=== PATIENT | female | born 1975 | race Caucasian/White ===

== ENCOUNTER 2018-10-21 15:05 | Inpatient (IN) | payer MEDICAID, OTHER ==
[~2018-10-21] VITALS: Ht 162.6 cm; Wt 108.9 kg
[2018-10-21] MEDS ORDERED: FURO-152 PO (15:10)
[2018-10-21] MEDS ORDERED: ONDANSETRON HCL 4MG/2ML INJ IV STA (15:21)
[2018-10-21] MEDS ORDERED: MORPHINE SULFATE 4 MG/ML CPJ (NOT FOR IM USE) IV STA (15:21)
[2018-10-21] MEDS ORDERED: NITROGLYCERIN OINT 1GM/INCH UDPKT TD ONE (15:30)
[2018-10-21] MEDS ORDERED: FUROSEMIDE 40MG/4ML VIAL IV ONE (15:30)
[2018-10-21] MEDS ORDERED: ASPIRIN 81MG TABLET PO ONE (15:30)
[2018-10-21] MEDS ORDERED: ALBUTEROL (0.083%) 2.5MG/3ML NEB HHN STA (16:42)
[2018-10-21] MEDS ORDERED: IPRATROPIUM BROMIDE (0.02%) 0.5MG/2.5ML NEB HHN STA (16:42)
[2018-10-21 16:45] LABS: HEMATOCRIT. 29.5 % (36.0-48.0); HEMOGLOBIN. 9.3 g/dL (12.0-16.0); MEAN CORPUSCULAR VOLUME 79.5 fL (81.0-99.0); MEAN PLATELET VOLUME 7.3 fl (7.4-10.4); PLATELET 232 x1000/uL (130-400); RED BLOOD CELL COUNT 3.72 mill/uL (4.2-5.4); RED CELL DISTRIBUTION WIDTH 22.4 % (11.6-14.6)
[2018-10-21 16:47] LABS: CHLORIDE 107 mEq/L (98-107)
[2018-10-21 16:50] LABS: INR 1.1; PARTIAL THROMBOPLASTIN TIME 25.7 sec (23.4-31.0)
[2018-10-21] MEDS ORDERED: DOPAMINE 400MG/250ML PREMIX 250 ML IV ONE ×2 (17:00→17:10)
[2018-10-21 17:45] LABS: PLATELET ESTIMATE NORMAL
[2018-10-21] MEDS ORDERED: GUAIFENESIN 200MG/10ML SUGAR FREE UDC PO PRN (17:45)
[2018-10-21] MEDS ORDERED: ONDANSETRON HCL 4MG/2ML INJ IV PRN (17:45)
[2018-10-21] MEDS ORDERED: MAGNESIUM/ALUMINUM HYDROXIDE/SIMETHICONE 30ML UDC PO PRN (17:45)
[2018-10-21] MEDS ORDERED: ACETAMINOPHEN 325MG TABLET PO PRN (17:45)
[2018-10-21] MEDS ORDERED: CLONIDINE 0.1MG TABLET PO PRN (17:45)
[2018-10-21] MEDS ORDERED: IPRATROPIUM/ALBUTEROL 0.5-3(2.5)MG/3ML NEB INH PRN (17:45)
[2018-10-21] MEDS ORDERED: HYDROCODONE/ACETAMINOPHEN 5/325MG TABLET PO PRN (17:45)
[2018-10-21] MEDS ORDERED: DOCUSATE SODIUM 100MG CAPSULE PO PRN (17:45)
[2018-10-21 18:59] LABS: HEPATITIS B SURFACE ANTIGEN NEGATIVE
[2018-10-21 19:24] LABS: BG BILEVEL POS AIRWAY PRESSURE 15/5; BG CARBOXYHEMOGLOBIN 0.2 % (0.5-1.5); BG DEOXYHEMOGLOBIN 0.9 % (0.0-5.0); BG FRACTION INSPIRED OXYGEN 80; BG HCO3 ACT 15.3 mmol/L (22.0-26.0); BG METHEMOGLOBIN 0.4 % (0.0-1.5); BG OXYGEN SATURATION 99.1 % (92.0-98.5); BG OXYHEMOGLOBIN 98.5 % (94.0-97.0); BG PCO2 24.8 mmHg (35.0-45.0); BG PH 7.407 (7.350-7.450); BG PO2 183.8 mmHg (75.0-100.0); BG SAMPLE SITE RIGHT RADIAL; BG TOTAL HEMOGLOBIN 10.2 g/dL (12.0-18.0); BG VENT MODE MASK - BIPAP; BG VENT RATE 18 set
[2018-10-21 19:29] LABS: HEPATITIS A AB IGM NEGATIVE (NEGATIVE)
[2018-10-21] MEDS ORDERED: CEFTRIAXONE 1 G PREMIX 50 ML IV NR (23:30)
[2018-10-22 03:59] LABS: CLARITY URINE CLEAR (CLEAR); COLOR URINE YELLOW (YELLOW); KETONES URINE NEGATIVE (NEGATIVE); LEUKOCYTE ESTERASE URINE TRACE (NEGATIVE); NITRITE URINE POSITIVE (NEGATIVE); OCCULT BLOOD URINE TRACE (NEGATIVE); PROTEIN URINE TRACE (NEGATIVE); SPECIFIC GRAVITY URINE 1.009 (1.005-1.030); UROBILINOGEN URINE 0.2 E.U./dL (0.2-1.0)
[2018-10-22 06:44] LABS: BASOPHILS % 0.9 % (0.0-2.0); EOSINOPHILS % 2.4 % (0.0-5.0); HEMATOCRIT. 29.3 % (36.0-48.0); HEMOGLOBIN. 9.4 g/dL (12.0-16.0); MEAN CORPUSCULAR HEMOGLOBIN 25.5 pg (28.0-32.0); MEAN CORPUSCULAR VOLUME 79.7 fL (81.0-99.0); MEAN PLATELET VOLUME 7.2 fl (7.4-10.4); MONOCYTES % 10.2 % (2.0-8.0); NEUTROPHILS % 68.5 % (40.0-76.0); PLATELET 236 x1000/uL (130-400); RED BLOOD CELL COUNT 3.68 mill/uL (4.2-5.4); RED CELL DISTRIBUTION WIDTH 22.4 % (11.6-14.6)
[2018-10-22 06:55] LABS: CHLORIDE 109 mEq/L (98-107)
[2018-10-22 07:03] LABS: PHOSPHORUS 5.4 mg/dL (2.5-4.9)
[2018-10-22 07:04] LABS: LDL CHOLESTEROL 33 mg/dL (5-100)
[2018-10-22 07:06] LABS: CREATINE KINASE 86 IU/L (26-192); HDL CHOLESTEROL 31 mg/dL (40-59)
[2018-10-22 07:36] LABS: PLATELET ESTIMATE NORMAL
[2018-10-22] MEDS ORDERED: ASPIRIN 81MG EC TABLET PO SCH (09:00)
[2018-10-22] MEDS ORDERED: LIDOCAINE HCL 1% 20ML VIAL (Pyxis) INJ ONE (10:07)
[2018-10-22 15:00] LABS: *AMPHETAMINES SCREEN URINE NEGATIVE (NEGATIVE); *BARBITURATES SCREEN URINE NEGATIVE (NEGATIVE); *BENZODIAZEPINES SCREEN URINE NEGATIVE (NEGATIVE); *COCAINE SCREEN URINE NEGATIVE (NEGATIVE)
[2018-10-22 15:01] LABS: CANNABINOID URINE SCREEN NEGATIVE (NEGATIVE); METHADONE URINE SCREEN NEGATIVE (NEGATIVE); OPIATES URINE SCREEN NEGATIVE (NEGATIVE); PHENCYCLIDINE URINE SCREEN NEGATIVE (NEGATIVE)
[2018-10-22] MEDS ORDERED: CEFTRIAXONE 1 G PREMIX 50 ML IV SCH ×2 (15:15→18:00)
[2018-10-22 16:17] VITALS: BP 117/61
[2018-10-22 16:19] VITALS: BP 117/61
[2018-10-22] MEDS ORDERED: FUROSEMIDE 40MG/4ML VIAL IV SCH (17:00)
[2018-10-22] MEDS: ASPIRIN 81MG EC TABLET PO SCH (17:23)
[2018-10-22 18:00] VITALS: BP 121/71
[2018-10-22] MEDS ORDERED: DEXTROSE 50% WATER 50ML SYRINGE IV PRN (20:00)
[2018-10-22 20:01] VITALS: BP 118/67
[2018-10-22] MEDS: ENOXAPARIN 30MG/0.3ML SYR SUBCUT SCH (20:49)
[2018-10-22] MEDS: BLOOD SUGAR DIAGNOSTIC STRIP TEST SCH (20:49)
[2018-10-22] MEDS ORDERED: COR25 MT (21:19)
[2018-10-22] MEDS ORDERED: ASPI-1159 PO (21:19)
[2018-10-22] MEDS ORDERED: SILD20TA PO (21:19)
[2018-10-22] MEDS ORDERED: ASCO500C18 PO (21:19)
[2018-10-22] MEDS ORDERED: SIME80TA15 MT (21:19)
[2018-10-22] MEDS ORDERED: CALC-586 MT (21:19)
[2018-10-22] MEDS ORDERED: INSU100I28 SQ (21:19)
[2018-10-22] MEDS ORDERED: FURO80TA87 MT (21:19)
[2018-10-22] MEDS ORDERED: ATOR-2 MT (21:19)
[2018-10-22] MEDS ORDERED: INSLIS SUBCUT (21:19)
[2018-10-22] MEDS ORDERED: GABA-529 PO (21:19)
[2018-10-22] MEDS: INSULIN LISPRO 100 UNITS/ML SUBCUT SCH (21:23)
[2018-10-22 22:00] VITALS: BP 107/68
[2018-10-23] VITALS (12 sets, daily range): BP systolic 95–151; BP diastolic 54–93
[2018-10-23] MEDS: BLOOD SUGAR DIAGNOSTIC STRIP TEST SCH ×4 (06:01→20:27)
[2018-10-23] MEDS: INSULIN LISPRO 100 UNITS/ML SUBCUT SCH ×4 (07:20→20:26)
[2018-10-23 07:37] LABS: HEMATOCRIT. 30.9 % (36.0-48.0); HEMOGLOBIN. 9.8 g/dL (12.0-16.0); MEAN CORPUSCULAR HEMOGLOBIN 25.5 pg (28.0-32.0); MEAN CORPUSCULAR VOLUME 80.4 fL (81.0-99.0); MEAN PLATELET VOLUME 7.9 fl (7.4-10.4); PLATELET 252 x1000/uL (130-400); RED BLOOD CELL COUNT 3.84 mill/uL (4.2-5.4); RED CELL DISTRIBUTION WIDTH 22.8 % (11.6-14.6)
[2018-10-23 07:51] LABS: BG CARBOXYHEMOGLOBIN 0.5 % (0.5-1.5); BG DEOXYHEMOGLOBIN 1.8 % (0.0-5.0); BG HCO3 ACT 18.3 mmol/L (22.0-26.0); BG METHEMOGLOBIN 0.3 % (0.0-1.5); BG OXYGEN SATURATION 98.2 % (92.0-98.5); BG OXYHEMOGLOBIN 97.4 % (94.0-97.0); BG PH 7.376 (7.350-7.450); BG PO2 117.5 mmHg (75.0-100.0); BG SAMPLE SITE RIGHT BRACHIAL; BG TOTAL HEMOGLOBIN 10.6 g/dL (12.0-18.0); BG VENT MODE MASK - VENTI
[2018-10-23 08:46] LABS: CHLORIDE 109 mEq/L (98-107)
[2018-10-23 08:52] LABS: PHOSPHORUS 4.1 mg/dL (2.5-4.9)
[2018-10-23] MEDS: FUROSEMIDE 40MG/4ML VIAL IV SCH ×2 (09:09→20:25)
[2018-10-23] MEDS: ASPIRIN 81MG EC TABLET PO SCH (09:09)
[2018-10-23] MEDS: ENOXAPARIN 30MG/0.3ML SYR SUBCUT SCH ×2 (09:10→20:27)
[2018-10-23 12:52] LABS: PLATELET ESTIMATE NORMAL
[2018-10-23] MEDS ORDERED: LIDOCAINE HCL/PF 1% 2ML VIAL ONE (13:42)
[2018-10-23] MEDS: IPRATROPIUM/ALBUTEROL 0.5-3(2.5)MG/3ML NEB HHN SCH ×3 (13:55→21:17)
[2018-10-23] MEDS: NYSTATIN POWDER 15GM TOP SCH (17:25)
[2018-10-23] MEDS ORDERED: CEFTRIAXONE 1 G PREMIX 50 ML IV SCH ×2 (18:00→20:00)
[2018-10-24] VITALS (8 sets, daily range): BP systolic 119–153; BP diastolic 38–95
[2018-10-24] MEDS: IPRATROPIUM/ALBUTEROL 0.5-3(2.5)MG/3ML NEB HHN SCH ×3 (02:59→14:12)
[2018-10-24] MEDS: BLOOD SUGAR DIAGNOSTIC STRIP TEST SCH ×2 (06:51→11:44)
[2018-10-24] MEDS: ENOXAPARIN 30MG/0.3ML SYR SUBCUT SCH (07:45)
[2018-10-24] MEDS: INSULIN LISPRO 100 UNITS/ML SUBCUT SCH ×2 (07:46→12:12)
[2018-10-24] MEDS: FUROSEMIDE 40MG/4ML VIAL IV SCH (07:46)
[2018-10-24] MEDS: ASPIRIN 81MG EC TABLET PO SCH (07:46)
[2018-10-24] MEDS: NYSTATIN POWDER 15GM TOP SCH (07:47)
[2018-10-24 11:54] LABS: BASOPHILS % 2.2 % (0.0-2.0); EOSINOPHILS % 4.9 % (0.0-5.0); HEMATOCRIT. 33.4 % (36.0-48.0); HEMOGLOBIN. 10.7 g/dL (12.0-16.0); LYMPHOCYTES % 26.2 % (20.0-50.0); MEAN CORPUSCULAR HEMOGLOBIN 25.3 pg (28.0-32.0); MEAN CORPUSCULAR VOLUME 79.1 fL (81.0-99.0); MONOCYTES % 11.6 % (2.0-8.0); NEUTROPHILS % 55.1 % (40.0-76.0); PLATELET 294 x1000/uL (130-400); RED BLOOD CELL COUNT 4.23 mill/uL (4.2-5.4); RED CELL DISTRIBUTION WIDTH 22.8 % (11.6-14.6)
[2018-10-24 12:09] LABS: PHOSPHORUS 3.5 mg/dL (2.5-4.9)
[2018-10-24 13:11] LABS: A/G RATIO 0.6 (0.7-1.7); ALBUMIN 2.7 g/dL (2.9-4.4); ALPHA-1-GLOBULIN 0.3 g/dL (0.0-0.4); ALPHA-2-GLOBULIN 0.8 g/dL (0.4-1.0); BETA GLOBULIN 1.1 g/dL (0.7-1.3); GAMMA GLOBULINS 2.4 g/dL (0.4-1.8); GLOBULIN TOTAL 4.6 g/dL (2.2-3.9); M-SPIKE Not Observed g/dL (Not Observed); TOTAL PROTEIN SERUM 7.3 g/dL (6.0-8.5)
== END 2018-10-24 14:40 | disposition home or self-care (01) | DRG 720 ==
LOC: ER 15:05 → EDBEDREQ 16:53 → EDBEDREQTM 16:53 → 3WST 17:01 → EDBEDREQTM 17:06 → EDBEDREQSVC 17:06 → EDBEDREQ 17:06 → CANRESERV 10-22 08:33 → ENRESERV 10-22 08:33 → EDRESERV 10-22 08:33 → EDBEDREQSVC 10-22 09:34 → ENRESERV 10-22 15:19
PROVIDERS: ADMIT Internal Medicine; ATTEND Internal Medicine
PROC: 5A09357 Assistance with Respiratory Ventilation, Less than 24 Consecutive Hours, Continuous Positive Airway Pressure (ICD-10-PCS; principal; 2018-10-21)
DX: A41.9 Sepsis, unspecified organism (principal); J96.01 Acute respiratory failure with hypoxia; E43 Unspecified severe protein-calorie malnutrition; K85.90 Acute pancreatitis without necrosis or infection, unspecified; N17.9 Acute kidney failure, unspecified; E87.2 Acidosis; E11.22 Type 2 diabetes mellitus with diabetic chronic kidney disease; E83.51 Hypocalcemia; I27.20 Pulmonary hypertension, unspecified; I95.9 Hypotension, unspecified; E11.51 Type 2 diabetes mellitus with diabetic peripheral angiopathy without gangrene; D63.8 Anemia in other chronic diseases classified elsewhere; B96.89 Other specified bacterial agents as the cause of diseases classified elsewhere; E78.00 Pure hypercholesterolemia, unspecified; E78.5 Hyperlipidemia, unspecified; I13.0 Hypertensive heart and chronic kidney disease with heart failure and stage 1 through stage 4 chronic kidney disease, or unspecified chronic kidney disease; I25.119 Atherosclerotic heart disease of native coronary artery with unspecified angina pectoris; I44.5 Left posterior fascicular block; I50.9 Heart failure, unspecified; N18.9 Chronic kidney disease, unspecified; N39.0 Urinary tract infection, site not specified; Z79.4 Long term (current) use of insulin; Z82.49 Family history of ischemic heart disease and other diseases of the circulatory system; Z89.429 Acquired absence of other toe(s), unspecified side; Z83.3 Family history of diabetes mellitus; Z95.5 Presence of coronary angioplasty implant and graft; Z99.81 Dependence on supplemental oxygen; Z68.41 Body mass index [BMI] 40.0-44.9, adult
CPT/HCPCS: 36415; 36569; 36600; 71045; 71250; 76700; 76937; 78582; 80048; 80061; 80305; 82375; 82550; 82805; 82962; 83735; 83880; 84100; 84134; 84155; 84165; 84439; 84443; 84484; 86705; 86709; 86803; 87070; 87077; 87186; 87340; 93005; 93306; 93970; 94660; 96374; 96375; 99291; A9558; C1725; J0696; J1265; J1650; J1815; J1940; J2270; J2405; J3490; J7050; J7620